=== PATIENT | male | born 1985 | race African-American/Black ===

== ENCOUNTER 2018-01-22 11:52 | Emergency (ER) | payer SELFPAY ==
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
[2018-01-22] MEDS ORDERED: NORMAL SALINE 1000 ML 1,000 ML IV ONE (13:06)
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
--- NOTE | 2018-01-22 13:38 | RADIOLOGY REPORT (SQ) ---
EXAM DESCRIPTION: CHEST 2 VIEWS COMPLETED DATE/TIME: 01/22/2018 1:23 pm REASON FOR STUDY: pain/trauma COMPARISON: None. EXAM PARAMETERS: NUMBER OF VIEWS: two views TECHNIQUE: Digital Frontal and Lateral radiographic views of the chest acquired. RADIATION DOSE: NA LIMITATIONS: none FINDINGS: LUNGS AND PLEURA: No opacities, masses or pneumothorax. No pleural effusion. MEDIASTINUM AND HILAR STRUCTURES: No masses or contour abnormalities. HEART AND VASCULAR STRUCTURES: Heart normal size. No evidence for failure. BONES: No acute findings. HARDWARE: None in the chest. OTHER: No other significant finding. IMPRESSION: NO ACUTE RADIOGRAPHIC FINDING IN THE CHEST. TECHNICAL DOCUMENTATION: JOB ID: [id number] [email or web address]- All Rights Reserved Reading location - IP/workstation name: [email or web address]
[2018-01-22 13:39] LABS: ABSOLUTE LYMPHOCYTES (AUTO) 0.8 10^3/uL (0.5-4.7); ABSOLUTE MONOCYTES (AUTO) 0.6 10^3/uL (0.1-1.4); ABSOLUTE NEUT (AUTO) 4.4 10^3/uL (1.7-8.2); BASOPHILS % (AUTO) 0.5 % (0-2); EOSINOPHILS % (AUTO) 0.6 % (0-6); HEMATOCRIT 43.4 % (37.9-51.0); HEMOGLOBIN 14.4 g/dL (13.5-17.0); LYMPHOCYTES % (AUTO) 13.5 % (13-45); MEAN CORPUSCULAR HEMOGLOBIN 27.8 pg (27.0-33.4); MEAN CORPUSCULAR HGB CONC 33.1 g/dL (32.0-36.0); MEAN CORPUSCULAR VOLUME 84 fl (80-97); MONOCYTES % (AUTO) 9.6 % (3-13); PLATELET COUNT 280 10^3/uL (150-450); RED BLOOD COUNT 5.17 10^6/uL (4.35-5.55); RED CELL DISTRIBUTION WIDTH 15.9 % (11.5-14.0); SEGMENTED NEUTROPHILS % (AUTO) 75.8 % (42-78); TOTAL CELLS COUNTED % (AUTO) 100 %; WHITE BLOOD COUNT 5.8 10^3/uL (4.0-10.5)
[2018-01-22 13:41] LABS: APPEARANCE,URINE CLEAR; BILIRUBIN,URINE NEGATIVE (NEGATIVE); COLOR,URINE YELLOW; GLUCOSE, URINE NEGATIVE (NEGATIVE); KETONES,URINE TRACE mg/dL (NEGATIVE); LEUKOCYTE ESTERASE,URINE SMALL (NEGATIVE); NITRITE,URINE NEGATIVE (NEGATIVE); PROTEIN,URINE 30 mg/dL (NEGATIVE); URINE SPECIFIC GRAVITY 1.025
--- NOTE | 2018-01-22 13:45 | RADIOLOGY REPORT (SQ) ---
EXAM DESCRIPTION: CT FACIAL AREA WITHOUT COMPLETED DATE/TIME: 01/22/2018 1:26 pm REASON FOR STUDY: pain/trauma COMPARISON: None. TECHNIQUE: Noncontrasted images through the facial bones and orbits windowed for bone and soft tissu e. Additional coronal and sagittal reconstructed images reviewed. All images stored on PACS. All CT scanners at this facility use dose modulation, iterative reconstruction, and/or weight based d osing when appropriate to reduce radiation dose to as low as reasonably achievable (ALARA). [facility]: Dose Right [facility]: CareDose [facility]: Dose Right [facility]: Teradose 4D [facility]: [employer] RADIATION DOSE: CT Rad equipment meets quality standard of care and radiation dose reduction techniq ues were employed. CTDIvol: 30.4 mGy. DLP: 589 mGy-cm. mGy. LIMITATIONS: None. FINDINGS: FACIAL BONES and ORBITS: An acute mildly depressed right orbital floor fracture is present , with about 3 to 4 mm of depression of the fracture fragment. This is best shown on sagittal images 19-21, and coronal images 20-23. No CT evidence of entrapment of the right inferior rectus muscle. There is right-sided intra and extraconal orbital air. Right globe intact. No retrobulbar hematoma. Very mild right proptosis. There is right-sided facial soft tissue swelling over the right frontal and pre maxillary region. No left-sided facial fractures are identified. Left globe, optic nerve, orbital soft tissues are unr emarkable. PARANASAL SINUSES: Mucous membrane thickening along the right fronto ethmoid junction without CT evid ence of acute right frontal sinusitis. Left frontal sinus, maxillary sinuses, ethmoid and sphenoid s inuses are clear. No nasal polyps. Maxillary sinus outlets are patent. SOFT TISSUES: Right-sided facial soft tissue swelling INFERIOR BRAIN: Limited view. No acute findings. OTHER: No other significant finding. IMPRESSION: Mildly depressed right orbital floor fracture, without entrapment of the right inferior rectus muscle. There is mild right proptosis and there are right-sided intraconal and extraconal air bubbles. Right globe radiographically intact. Report discussed with Dr. Hatfield in the emergency room. TECHNICAL DOCUMENTATION: JOB ID: [id number] Quality ID # [id number]: Final reports with documentation of one or more dose reduction techniques (e.g., Au tomated exposure control, adjustment of the mA and/or kV according to patient size, use of iterative reconstruction technique) 2010 [employer]- All Rights Reserved Reading location - IP/workstation name: [email or web address]
[2018-01-22 13:55] LABS: ANION GAP 13 (5-19); BLOOD UREA NITROGEN 14 mg/dL (7-20); CALCIUM 10.1 mg/dL (8.4-10.2); CARBON DIOXIDE 30 mmol/L (22-30); CHLORIDE 98 mmol/L (98-107); CREATINE KINASE 546 U/L (55-170); GLUCOSE 91 mg/dL (75-110); POTASSIUM 4.7 mmol/L (3.6-5.0); SODIUM 140.5 mmol/L (137-145)
--- NOTE | 2018-01-22 14:00 | RADIOLOGY REPORT (SQ) ---
EXAM DESCRIPTION: CT HEAD WITHOUT COMPLETED DATE/TIME: 01/22/2018 1:47 pm REASON FOR STUDY: trauma COMPARISON: CT facial bones same date TECHNIQUE: Axial images acquired through the brain without intravenous contrast. Images reviewed wi th bone, brain and subdural windows. Additional sagittal and coronal reconstructions were generated. Images stored on PACS. All CT scanners at this facility use dose modulation, iterative reconstruction, and/or weight based d osing when appropriate to reduce radiation dose to as low as reasonably achievable (ALARA). [facility]: Dose Right [facility]: CareDose [facility]: Dose Right [facility]: Teradose 4D [facility]: [employer] RADIATION DOSE: CT Rad equipment meets quality standard of care and radiation dose reduction techniq ues were employed. CTDIvol: 53.2 mGy. DLP: 964 mGy-cm. mGy. LIMITATIONS: None. FINDINGS: VENTRICLES: Normal size and contour. CEREBRUM: No masses. No hemorrhage. No midline shift. No evidence for acute infarction. Normal gra y/white matter differentiation. No areas of low density in the white matter. CEREBELLUM: No masses. No hemorrhage. No alteration of density. No evidence for acute infarction. EXTRAAXIAL SPACES: No fluid collections. No masses. ORBITS AND GLOBE: Right orbital floor fracture with depression of the fracture fragments by 3 to 4 mm . Mild right proptosis. Moderate amount of intraorbital air in the intra and extraconal fat. CALVARIUM: No fracture. PARANASAL SINUSES: Opacified right maxillary sinus with hemorrhage related to orbital floor fracture SOFT TISSUES: No mass or hematoma. OTHER: No other significant finding. IMPRESSION: No acute intracranial changes Right orbital floor fracture with mild proptosis, intra and extraconal orbital air, and depression of the fracture fragment by 3 to 4 mm EVIDENCE OF ACUTE STROKE: NO. COMMENT: Quality ID # [id number]: Final reports with documentation of one or more dose reduction techniques (e.g., Automated exposure control, adjustment of the mA and/or kV according to patient size, use of iterative reconstruction technique) TECHNICAL DOCUMENTATION: JOB ID: [id number] [employer]- All Rights Reserved Reading location - IP/workstation name: [facility]-[email or web address]
--- NOTE | 2018-01-22 14:04 | RADIOLOGY REPORT (SQ) ---
EXAM DESCRIPTION: CT ABD/PELVIS NO ORAL OR IV COMPLETED DATE/TIME: 01/22/2018 1:47 pm REASON FOR STUDY: trauma COMPARISON: None. TECHNIQUE: CT scan of the abdomen and pelvis performed without intravenous or oral contrast. Images reviewed with lung, soft tissue, and bone windows. Reconstructed coronal and sagittal MPR images revi ewed. All images stored on PACS. All CT scanners at this facility use dose modulation, iterative reconstruction, and/or weight based d osing when appropriate to reduce radiation dose to as low as reasonably achievable (ALARA). [facility]: Dose Right [facility]: CareDose [facility]: Dose Right [facility]: Teradose 4D [facility]: [employer] RADIATION DOSE: CT Rad equipment meets quality standard of care and radiation dose reduction techniq ues were employed. CTDIvol: 14.4 mGy. DLP: 761 mGy-cm.mGy. LIMITATIONS: No IV contrast. Subtle solid organ injury could be missed. FINDINGS: LOWER CHEST: No significant findings. No nodules or infiltrates. NON-CONTRASTED LIVER, SPLEEN, ADRENALS: Evaluation limited by lack of IV contrast. No identified sign ificant masses. PANCREAS: No masses. No peripancreatic inflammatory changes. GALLBLADDER: No identified stones by CT criteria. No inflammatory changes to suggest cholecystitis. RIGHT KIDNEY AND URETER: No suspicious masses. Assessment limited by lack of IV contrast. No signif icant calcifications. No hydronephrosis or hydroureter. LEFT KIDNEY AND URETER: No suspicious masses. Assessment limited by lack of IV contrast. No signifi cant calcifications. No hydronephrosis or hydroureter. AORTA AND RETROPERITONEUM: No aneurysm. No retroperitoneal masses or adenopathy. BOWEL AND PERITONEAL CAVITY: No obvious masses or inflammatory changes. No free fluid. APPENDIX: Normal. PELVIS, BLADDER, AND ABDOMINAL WALL:No abnormal masses. No free fluid. Bladder normal. BONES: No significant findings. OTHER: No other significant finding. IMPRESSION: NO SIGNIFICANT OR ACUTE PROCESS IN THE ABDOMEN OR PELVIS. COMMENT: Quality ID # [id number]: Final reports with documentation of one or more dose reduction techniques (e.g., Automated exposure control, adjustment of the mA and/or kV according to patient size, use of iterative reconstruction technique) TECHNICAL DOCUMENTATION: JOB ID: [id number] [employer]- All Rights Reserved Reading location - IP/workstation name: [facility]
[2018-01-22 16:16] VITALS: BP 127/79
== END 2018-01-22 16:30 | disposition home or self-care (01) ==
LOC: ER 11:52
DX: S02.31XA Fracture of orbital floor, right side, initial encounter for closed fracture (principal); S09.90XA Unspecified injury of head, initial encounter; S30.1XXA Contusion of abdominal wall, initial encounter; W50.0XXA Accidental hit or strike by another person, initial encounter; Y93.75 Activity, martial arts
CPT/HCPCS: 99284; 96360; 36415; 82550; 85025; 80048; 81001; 71046; 70450; 70486; 74176; J7030

== ENCOUNTER 2018-02-25 12:29 | Emergency (ER) | payer SELFPAY ==
[2018-02-25 12:46] VITALS: BP 131/84
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
[2018-02-25] MEDS ORDERED: DIPH/PERTUSS(ACELL)/TETANUS VAC/PF 0.5 ML SYR (>=10YO) IM ONE (13:00)
== END 2018-02-25 13:17 | disposition home or self-care (01) ==
LOC: ER 12:29
DX: S59.901A Unspecified injury of right elbow, initial encounter (principal); M25.521 Pain in right elbow; W19.XXXA Unspecified fall, initial encounter; F17.200 Nicotine dependence, unspecified, uncomplicated; Z23 Encounter for immunization
CPT/HCPCS: 90471; 90715; 99283

== ENCOUNTER 2018-05-27 09:10 | Emergency (ER) | payer SELFPAY ==
[2018-05-27 09:15] VITALS: BP 110/66
[2018-05-27] MEDS ORDERED: CEFTRIAXONE INJ 250 MG VIAL IM ONE (09:27)
[2018-05-27] MEDS ORDERED: METRONIDAZOLE 500 MG TABLET PO ONE (09:27)
[2018-05-27] MEDS ORDERED: AZITHROMYCIN 1 GM SUSP PACKET PO ONE (09:27)
[2018-05-27] MEDS ORDERED: ONDANSETRON ODT 4 MG TAB (6 TAB/ER DISP) PO PRN (09:27)
--- NOTE | 2018-05-27 09:30 | ER Document Report ---
ED General - General Chief Complaint: Penile Discharge Stated Complaint: URINARY ISSUE Time Seen by Provider: 05/27/18 09:27 TRAVEL OUTSIDE OF THE [place] IN LAST 30 DAYS: No - HPI Patient complains to provider of: Penile discharge Notes: Patient coming in for complaint of penile discharge ongoing for the last few days. Patient denies any lesions on his penis. Patient denies any sexually transmitted diseases in the past currently sexually active heterosexual sex only. Patient denies any homosexual sex. Denies any fevers chills nausea vomiting diarrhea. - Related Data Allergies/Adverse Reactions: No Known Allergies Allergy (Verified 05/27/18 09:11) Past Medical History - Social History Smoking Status: Current Every Day Smoker Frequency of alcohol use: Occasional Drug Abuse: Marijuana Family History: None Patient has suicidal ideation: No Patient has homicidal ideation: No Renal/ Medical History: Denies: Hx Peritoneal Dialysis - Immunizations Immunizations up to date: Yes Hx Diphtheria, Pertussis, Tetanus Vaccination: Yes - unsure Review of Systems - Review of Systems Constitutional: No symptoms reported EENT: No symptoms reported Cardiovascular: No symptoms reported Respiratory: No symptoms reported Gastrointestinal: No symptoms reported Genitourinary: No symptoms reported Male Genitourinary: Penile discharge Musculoskeletal: No symptoms reported Skin: No symptoms reported Hematologic/Lymphatic: No symptoms reported Neurological/Psychological: No symptoms reported -: Yes All other systems reviewed and negative Physical Exam - Vital signs Vitals: Temp Pulse Resp BP Pulse Ox 98.0 F 88 16 110/66 96 05/27/18 09:14 05/27/18 09:14 05/27/18 09:14 05/27/18 09:14 05/27/18 09:14 Interpretation: Normal - General General appearance: Appears well, Alert - HEENT Head: Normocephalic, Atraumatic Eyes: Normal Pupils: PERRL - Respiratory Respiratory status: No respiratory distress Chest status: Nontender Breath sounds: Normal Chest palpation: Normal - Cardiovascular Rhythm: Regular Heart sounds: Normal auscultation Murmur: No - Abdominal Inspection: Normal Distension: No distension Bowel sounds: Normal Tenderness: Nontender Organomegaly: No organomegaly - Genitourinary Inspection: Penile discharge - Scant white to clear discharge at the tip of the penis Tenderness: Nontender Cremasteric reflex: Normal Scrotum: Normal Notes: No lesions no lymphadenopathy in the groin region. - Back Back: Normal, Nontender - Extremities General upper extremity: Normal inspection, Nontender, Normal color, Normal ROM , Normal temperature General lower extremity: Normal inspection, Nontender, Normal color, Normal ROM , Normal temperature, Normal weight bearing. No: Taylor's sign - Neurological Neuro grossly intact: Yes Cognition: Normal Orientation: AAOx4 [place] Coma Scale Eye Opening: Spontaneous [place] Coma Scale Verbal: Oriented [place] Coma Scale Motor: Obeys Commands [place] Coma Scale Total: 15 Speech: Normal Motor strength normal: LUE, RUE, LLE, RLE Sensory: Normal - Psychological Associated symptoms: Normal affect, Normal mood - Skin Skin Temperature: Warm Skin Moisture: Dry Skin Color: Normal Course - Re-evaluation Re-evalutation: 05/27/18 10:12 Consistent with a sexually transmitted disease. Patient was able to provide us a urine for gonorrhea and Chlamydia testing. We will go ahead and prophylactically treat the patient for gonorrhea chlamydia and trichomonas. Patient was advised to abstain from sexual contact for the next 2 weeks inform sexual partners which patient states he really has. Patient will be discharged home. - Vital Signs Vital signs: Temp Pulse Resp BP Pulse Ox 98.0 F 88 16 110/66 96 05/27/18 09:14 05/27/18 09:14 05/27/18 09:14 05/27/18 09:14 05/27/18 09:14 Discharge - Discharge Clinical Impression: Sexually transmitted disease Condition: Good Disposition: HOME, SELF-CARE Instructions: Chlamydia ([facility]), Gonorrhea ([facility]), Trichomonas Infection ([facility]) Additional Instructions: You were treated today for gonorrhea chlamydia and trichomonas with Rocephin and Zithromax and Flagyl. These are all socially transmitted diseases. You must avoid any sexual contact for the next 2 weeks. Please notify your sexual partners that they will need to be treated as well. Denies any lesions on the genitalia today consistent with herpes syphilis or any other sexual transmitted diseases. Please follow-up this afternoon or tomorrow during business hours 8-5 to get your results. Return to the ER for any other concerns. Please be aware that the Flagyl to take can interact with alcohol please avoid any alcohol for the next 48 hours. Rohit provided for any nausea that he may have due to the antibiotics Forms: Return to Work
[2018-05-27 11:31] LABS: CHLAM PCR NOT DETECTED (NOT DETECT); GON PCR DETECTED (NOT DETECT)
== END 2018-05-27 10:36 | disposition home or self-care (01) ==
LOC: ER 09:10
DX: A64 Unspecified sexually transmitted disease (principal); F17.200 Nicotine dependence, unspecified, uncomplicated; F12.10 Cannabis abuse, uncomplicated
CPT/HCPCS: 99283; 96372; 87491; 87591; Q0144; J0696

== ENCOUNTER 2019-03-08 10:13 | Emergency (ER) | payer SELFPAY ==
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
[2019-03-08] MEDS ORDERED: LIDOCAINE 1%/EPINEPHRINE INJ 20 ML VIAL INJ ONE (13:38)
[2019-03-08] MEDS ORDERED: CEPHALEXIN 500 MG CAPSULE PO ONE (14:53)
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
[2019-03-08 15:23] VITALS: BP 125/82
== END 2019-03-08 15:23 | disposition home or self-care (01) ==
LOC: ER 10:13
DX: S01.111A Laceration without foreign body of right eyelid and periocular area, initial encounter (principal); S01.81XA Laceration without foreign body of other part of head, initial encounter; Y04.0XXA Assault by unarmed brawl or fight, initial encounter; F17.210 Nicotine dependence, cigarettes, uncomplicated
CPT/HCPCS: 99282; 70450; 70486; 12013; J3490

== ENCOUNTER → 2020-09-08 | Outpatient (CLI) | payer SELFPAY ==
[2020-09-08 14:26] VITALS: BP 113/80
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
== END ==
LOC: RDC 13:28
PROVIDERS: ATTEND Registered Nurse
DX: Z20.828 Contact with and (suspected) exposure to other viral communicable diseases (principal)
CPT/HCPCS: 87635; 99201; 99211; C9803